=== PATIENT | female | born 1960 | race Caucasian/White ===

== ENCOUNTER 2024-02-07 07:00 | Outpatient (NON) | payer OTHER, SELFPAY | END 2024-02-07 07:01 | disposition home or self-care (01) | PROVIDERS: PCP Family Medicine; Visit Provider Internal Medicine Gastroenterology | DX: Z12.11 Encounter for screening for malignant neoplasm of colon (principal); D12.5 Benign neoplasm of sigmoid colon | CPT/HCPCS: 88305 ==

== ENCOUNTER 2024-02-07 07:47 | Day surgery (SDC) | payer OTHER, SELFPAY ==
[2024-01-05 14:04] VITALS: BMI 25.8
[2024-01-26 14:15] VITALS: BMI 26.1
[2024-02-07 08:38] VITALS: BP 100/79; PULSE 79; RESP 15; TEMP 36.5; O2SAT 100
[2024-02-07] MEDS: LACTATED RINGERS 1,000 ML 150 ML IV CONT (08:44)
--- NOTE | 2024-02-07 10:00 | PM.HPGS ---
History of Present Illness History of Present Illness Consent: Risks, benefits, and alternatives have been discussed and questions answered. Patient agrees to proceed with procedure. Chief complaint: Neoplasm Screening Narrative: Fadumo Hoffman is a 63 year old female who is referred for colon cancer screening. Review of Systems Review of Systems: All systems reviewed & are unremarkable except as noted in HPI and below PMFSH Social History Social History Smoking status: Never smoker Alcohol intake: never Substance use type: does not use Living arrangements: with family Spiritual care concerns: No Meds Home Medications and Allergies Home Medications Medication Instructions Recorded Confirmed Type clobetasol-emollient 0.05 % 1 applic topical DAILY 01/26/24 02/07/24 History topical cream rosuvastatin 20 mg tablet 20 mg PO DAILY 01/26/24 02/07/24 History Allergies Allergy/AdvReac Type Severity Reaction Status Date / Time No Known Allergies Allergy Verified 02/07/24 08:37 Vital Signs Vital Signs - 24 hr 02/07/24 08:38 Temperature 36.5 C Pulse Rate 79 Respiratory Rate 15 Blood Pressure 100/79 Pulse Oximetry 100 Oxygen Delivery Room Air Exam Const: General: alert Orientation/consciousness: patient oriented x3 Resp: Auscultation: clear to auscultation bilaterally Cardio: Rhythm: regular rhythm GI: GI Palp: Yes Soft to palpation and No Tenderness to palpation present (GI) Neuro: General: patient oriented x3 Assessment and Plan Assessment and plan (1) Colon cancer screening: Code(s): Z12.11 - Encounter for screening for malignant neoplasm of colon Status: Acute Assessment and Plan: Colonoscopy with possible biopsy or polypectomy or cautery or injection of substances.
--- NOTE | 2024-02-07 10:03 | P.PNAN_ITS ---
Anes - Initial Pre Proc Eval Procedure: Operation Date: 02/07/24 10:00 Proposed Procedures p Screening Colonoscopy - Pierce Maher MD Date/Time: 02/07/24 10:03 Surgeon: Pierce Maher MD Pre Op Diagnosis: Neoplasm Screening Patient Data Age: 63 Gender: F Height: 1.63 m Weight: 68.05 kg Last Vital Signs Temp 36.5 C 02/07/24 08:38 Pulse 79 02/07/24 08:38 Resp 15 02/07/24 08:38 BP 100/79 02/07/24 08:38 Pulse Ox 100 02/07/24 08:38 O2 Del Method Room Air 02/07/24 08:38 Allergies Allergy/AdvReac Type Severity Reaction Status Date / Time No Known Allergies Allergy Verified 02/07/24 08:37 Home Medications Medication Instructions Recorded Confirmed Type clobetasol-emollient 0.05 % 1 applic topical DAILY 01/26/24 02/07/24 History topical cream rosuvastatin 20 mg tablet 20 mg PO DAILY 01/26/24 02/07/24 History Patient hx anesthesia problems: none Family hx anesthesia problems: none Results Review: All pre-operative results and documents have been reviewed as part of the pre- operative evaluation. PMFSH Past Medical History Medical History (Updated 02/07/24 @ 10:03 by Steven Tran MD) Hyperlipidemia Social History Social History (Updated 02/07/24 @ 10:03 by Steven Tran MD) Smoking status: Former smoker Alcohol intake: never Substance use type: does not use Living arrangements: with family Spiritual care concerns: No Anes - Eval Final PreProcedure Day of Procedure 02/07/24 10:03 Patient weight: overweight Heart: regular rate and rhythm Lungs: clear to auscultation Airway: Mallampati scale class II Neurological: alert and oriented Last oral intake: >/= 8 hours ASA classification: II Emergent: no Anesthetic plan: proceed Anesthesia type and monitoring: general GIVS and standard monitoring Results Review: All pre-operative results and documents have been reviewed as part of the pre- operative evaluation. Informed Consent: The patient's anesthetic plan and its attendant risks and benefits were discussed with the patient/family/POA. Questions were solicited and answers provided to the satisfaction of the patient/family/POA.
--- NOTE | 2024-02-07 10:26 | SUR.OPER ---
resolution clip to sigmoid polypectomy lot#[id number], exp
[2024-02-07 10:29] VITALS: BP 90/53; PULSE 65; RESP 16; O2SAT 97
[2024-02-07 10:39] VITALS: BP 111/73; PULSE 63; RESP 16; O2SAT 99
[2024-02-07 10:49] VITALS: BP 110/84; PULSE 61; RESP 16; O2SAT 99
--- NOTE | 2024-02-07 11:03 | WPDANESPN ---
Anes - Prog Note Post-Op Date/Time: 02/07/24 11:03 Cardiovascular status: normal Respiratory status: normal Airway patency: baseline Mental status: baseline Post-Op hydration status: normal Vital Signs: Last Vital Signs Temp 36.5 C 02/07/24 08:38 Pulse 61 02/07/24 10:49 Resp 16 02/07/24 10:49 BP 110/84 02/07/24 10:49 Pulse Ox 99 02/07/24 10:49 O2 Del Method Room Air 02/07/24 10:49 Pain Score (VAS): 0/10 I/O: Intake & Output 02/06/24 02/07/24 02/07/24 23:59 07:59 15:59 Intake Total 950 Balance 950 Patient Feedback: Patient satisfied with anesthetic care.
== END 2024-02-07 10:58 | disposition home or self-care (01) ==
PROVIDERS: PCP Family Medicine; Visit Provider Internal Medicine Gastroenterology
PROC: 0DJD8ZZ Inspection of Lower Intestinal Tract, Via Natural or Artificial Opening Endoscopic (ICD-10-PCS; CPT 45378; principal; 2024-02-07 10:00)
DX: Z12.11 Encounter for screening for malignant neoplasm of colon (principal); D12.5 Benign neoplasm of sigmoid colon
CPT/HCPCS: 45385; 45381